=== PATIENT | male | born 1955 | race Caucasian/White ===

== ENCOUNTER 2018-06-09 02:23 | Emergency (ER) | payer OTHER ==
[~2018-06-09] VITALS: Ht 139.7 cm; Wt 49.4 kg
[2018-06-09 02:29] VITALS: BP 170/111
[2018-06-09] MEDS ORDERED: NACL 0.9% 1,000 ML IV ONE (02:39)
[2018-06-09] MEDS ORDERED: LORazepam 2 MG/ML VIAL IM ONE (02:40)
--- NOTE | 2018-06-09 02:41 | NUR ---
63/M BIB FAMILY FOR AGITATION X 1 DAY. PER FAMILY PT WAS SEEN BY ER MD ON MONDAY, DX: UTI. PMH: DOWN SYNDROME
--- NOTE | 2018-06-09 02:41 | NUR ---
PT BIB PARENTS TO ED BED 10
[2018-06-09 03:33] LABS: BASOPHILS % (AUTO) 0.7 % (0.0-2.0); EOSINOPHILS # (AUTO) 0.1 K/uL (0-0.4); EOSINOPHILS % (AUTO) 1.8 % (0.0-4.0); HEMATOCRIT 40.3 % (36-52); HEMOGLOBIN 13.4 g/dL (12.0-18.0); LYMPHOCYTES # (AUTO) 1.4 K/uL (2.0-11.5); LYMPHOCYTES % (AUTO) 29.2 % (20.5-51.1); MEAN CORPUSCULAR HEMOGLOBIN 32 pg (27-31); MEAN CORPUSCULAR HGB CONC 33 g/dL (33-37); MONOCYTES # (AUTO) 0.5 K/uL (0.8-1.0); MONOCYTES % (AUTO) 10.1 % (1.7-9.3); NEUTROPHILS # (AUTO) 2.8 K/uL (1.8-7.7); NEUTROPHILS % (AUTO) 58.2 % (42.2-75.2); PLATELET COUNT (AUTO) 198 K/uL (140-450); RED BLOOD CELL COUNT(AUTO) 4.15 MIL/uL (4.20-6.10); RED CELL DISTRIBUTION WIDTH 13.9 % (11.6-13.7); WHITE BLOOD COUNT (AUTO) 4.8 K/uL (4.8-10.8)
[2018-06-09 03:36] LABS: APPEARANCE,URINE CLEAR (CLEAR); BILIRUBIN,URINE NEGATIVE (NEGATIVE); BLOOD, URINE NEGATIVE (NEGATIVE); COLOR,URINE YELLOW (YELLOW); LEUKOCYTE ESTERASE ,URINE NEGATIVE (NEGATIVE); NITRITE, URINE NEGATIVE (NEGATIVE); UGLUCOSE NEGATIVE (NEGATIVE)
[2018-06-09 03:42] LABS: BARBITURATE, URINE NEG. ng/ml (NEG <=200); BENZODIAZEPINE, URINE NEG. ng/mL (NEG <=200); CANNABINOID, URINE NEG. ng/mL (NEG <=50); COCAINE, URINE NEG. ng/mL (NEG <=300); OPIATE, URINE NEG. ng/mL (NEG <=2000); PHENCYCLIDINE SCREEN,URINE NEG. ng/mL (NEG <=25)
[2018-06-09 03:45] LABS: CARBON DIOXIDE 25.5 mmol/L (21-32); CREATININE 1.5 mg/dL (0.7-1.3); POTASSIUM 4.5 mmol/L (3.5-5.1)
[2018-06-09 03:52] LABS: ALBUMIN 2.5 g/dL (3.4-5.0); TOTAL BILIRUBIN 0.6 mg/dL (0.0-1.0)
--- NOTE | 2018-06-09 04:50 | NUR ---
Patient appears to be resting comfortably in bed. Respirations even and unlabored.
[2018-06-09] MEDS ORDERED: cefTRIAXone 1,000 MG VIAL ONE (06:39)
--- NOTE | 2018-06-09 07:05 | NUR ---
Patient discharged with v/s stable. Written and verbal after care instructions given and explained TO CAREGIVER. CAREGIVER alert, oriented and verbalized understanding of instructions. Ambulatory with steady gait. All questions addressed prior to discharge. ID band removed. Patient advised to follow up with PMD. Rx of ATIVAN ADN LEVAQUIN given. Patient educated on indication of medication including possible reaction and side effects. Opportunity to ask questions provided and answered.
[2018-06-09 07:07] VITALS: BP 119/77
== END 2018-06-09 07:05 | disposition home or self-care (01) ==
LOC: MED 02:23
DX: N39.0 Urinary tract infection, site not specified (principal); E86.0 Dehydration; R45.1 Restlessness and agitation
CPT/HCPCS: 36415; 70450; 74176; 80053; 80305; 81003; 83690; 85025; 96361; 96365; 96372; 99285; G0482; J0696; J2060; J7030